=== PATIENT | male | born 2000 | race Caucasian/White ===

== ENCOUNTER 2019-10-29 15:07 | Emergency (ER) | payer BC ==
[~2019-10-29] VITALS: Ht 175.3 cm; Wt 75.0 kg
[2019-10-29 15:13] VITALS: BP 126/74
[2019-10-29] MEDS ORDERED: CLARITIN 1010 MG/TAB PO (16:18)
[2019-10-29] MEDS ORDERED: BENADRYL25 M2 PO (16:19)
[2019-10-29 16:21] LABS: BASO % 0.4 % (0.0-2.0); GRAN % 83.1 % (42.2-75.2); HEMATOCRIT 42.9 % (36.0-47.0); HEMOGLOBIN 15.4 g/dl (12.5-16.1); LYMPH # 0.9 (1.2-3.4); LYMPH % 10.6 % (20.0-51.0); MEAN CELL VOLUME 81 fl (80.0-95.0); MEAN CORPUSCULAR HEMOGLOBIN 29 pg (26.0-32.0); MEAN CORPUSCULAR HGB CONC 36 g/dl (33.0-37.0); MEAN PLATELET VOLUME 9.2 fl (7.4-10.4); MONO # 0.5 (0.1-0.6); MONO % 5.5 % (1.7-9.3); PLATELET COUNT 171 K/mm3 (130-400); RED BLOOD COUNT 5.27 M/mm3 (4.20-5.60); REDCELL DISTRIBUTION WIDTH-CV 11.8 % (11.5-14.5)
[2019-10-29 16:35] LABS: ALBUMIN 4.7 gm/dL (3.5-5.0); C-REACTIVE PROTEIN 5.5 mg/dL (0.0-0.9); CALCIUM 9.3 mg/dL (8.4-10.2); CREATININE, serum 0.97 (0.66-1.25); POTASSIUM 3.5 mmol/L (3.4-5.0)
[2019-10-29 16:59] VITALS: PULSE 94; TEMP 99.8
[2019-10-29] MEDS ORDERED: ZOFRAN ODT4 MG PO (17:09)
== END 2019-10-29 17:15 | disposition home or self-care (01) ==
LOC: COL.ER 15:07
PROVIDERS: Physician Assistant
DX: B34.9 Viral infection, unspecified (principal)
CPT/HCPCS: J2405; J7030